=== PATIENT | male | born 1970 | race Caucasian/White ===

== ENCOUNTER 2023-01-13 06:46 | Outpatient (CLI) | payer OTHER, SELFPAY ==
--- NOTE | ~2023-01-13 | MR_ITS ---
MRI of the left knee Clinical history: Pain Technique: Coronal proton density and proton density-weighted images, sagittal proton-density and T2 fat-sat images, and axial proton-density fat-saturated images were acquired. Findings: Anterior and posterior cruciate ligaments are intact. Medial collateral ligament and the la teral collateral ligament complex are intact. Popliteus tendon is intact. There is horizontal/oblique tearing of the posterior horn of the medial meniscus. Lateral meniscus is intact. Articular cartilage is well preserved throughout the knee. Bone marrow signals are unremarkable. Extensor mechanism is intact. No significant joint effusion or Drake's cyst. Impression: Horizontal/oblique tear of the posterior horn of the medial meniscus. Reviewed, dictated and finalized at [facility]. Impression: Horizontal/oblique tear of the posterior horn of the medial meniscus.
== END 2023-01-13 06:47 | disposition home or self-care (01) ==
PROVIDERS: Visit Provider Orthopaedic Surgery
DX: M25.562 Pain in left knee (principal); G89.29 Other chronic pain; S83.242A Other tear of medial meniscus, current injury, left knee, initial encounter
CPT/HCPCS: 73721

== ENCOUNTER 2023-07-09 09:59 | Outpatient (CLI) | payer OTHER, SELFPAY ==
--- NOTE | ~2023-07-09 | MR_ITS ---
MRI of the left knee Clinical history: Pain Technique: Coronal proton density and proton density-weighted images, sagittal proton-density and T2 fat-sat images, and axial proton-density fat-saturated images were acquired. COMPARISON: 01/13/2023 Findings: Possible partial tear at the proximal ACL. No full-thickness tear evident. Posterior crucia te ligament is intact. There is thickening and increased signal of the proximal MCL. Lateral collater al ligament complex is intact. Popliteus tendon is intact. No lateral meniscal tear seen. There is complete absence of the posterior horn and body of the medial meniscus. There is minimal chondral thinning in the medial lateral compartments. Patellofemoral compartment car tilage is well preserved. Bone marrow signals are unremarkable. Extensor mechanism is intact. No significant joint effusion. Minimal Drake's cyst present. Impression: Prior partial meniscectomy, with absent posterior horn and body medial meniscus. Possible partial tear of the proximal ACL. No definite full-thickness tear seen. Thickening and increased signal of the proximal MCL is compatible with grade 1 to possibly mild grade 2 sprain. Reviewed, dictated and finalized at [facility]. SAMPLER Impression: Prior partial meniscectomy, with absent posterior horn and body medial meniscus . Possible partial tear of the proximal ACL. No definite full-thickness tear seen . Thickening and increased signal of the proximal MCL is compatible with grade 1 to possibly mild grade 2 sprain.
== END 2023-07-09 10:00 | disposition home or self-care (01) ==
LOC: ANHIMG 10:01
PROVIDERS: Visit Provider Orthopaedic Surgery
DX: M25.562 Pain in left knee (principal); G89.29 Other chronic pain; Z98.890 Other specified postprocedural states
CPT/HCPCS: 73721